=== PATIENT | male | born 1955 | race Caucasian/White ===

== ENCOUNTER 2019-11-22 15:36 | Inpatient (IN) | payer BC, MEDICARE ==
[~2019-11-22] VITALS: Ht 193 cm; Wt 113.0 kg
[2019-11-22] MEDS ORDERED: IV NORMAL SALINE 1000ML BAG 1,000 ML IV ONE (16:00)
[2019-11-22 16:33] LABS: BASO % 1 % (0-3); EOS # 0.1 x10^3/uL (0.0-0.7); EOS % 2 % (0-3); HEMATOCRIT 43.4 % (39.0-53.0); HEMOGLOBIN 14.6 g/dL (13.0-17.5); LYMPH # 1.5 x10^3/uL (1.0-4.8); LYMPH % 27 % (24-48); MEAN CORPUSCULAR HEMOGLOBIN 29 pg (25-35); MEAN CORPUSCULAR HGB CONC 34 g/dL (31-37); MEAN CORPUSCULAR VOLUME 87 fL (79-100); MONO # 0.5 x10^3/uL (0.0-1.1); MONO % 9 % (0-9); NEUT # 3.3 x10^3/uL (1.8-7.7); NEUT % 61 % (31-73); PLATELET COUNT 229 x10^3/uL (140-400); RED BLOOD COUNT 4.97 x10^6/uL (4.30-5.70); RED CELL DISTRIBUTION WIDTH 12.6 % (11.5-14.5); WHITE BLOOD COUNT 5.5 x10^3/uL (4.0-11.0)
--- NOTE | 2019-11-22 16:33 | RAD ---
AP chest. HISTORY: Short of air, fever AP view was taken of the chest. Patient's taken a poor inspiration. There is mild pleural thickening. There is no definite effusion. There are no confluent infiltrates. There are calcified granulomas at the right hilum and mediastinum. IMPRESSION: 1. Poor inspiration. 2. No definite infiltrates. Electronically signed by: Manjinder Kowalski MD (11/22/2019 4:30 PM) [id number]
[2019-11-22 16:42] LABS: ANION GAP 7 (6-14); BLOOD UREA NITROGEN 16 mg/dL (8-26); BUN/CREATININE RATIO 15 (6-20); CALCIUM 9.3 mg/dL (8.5-10.1); CARBON DIOXIDE 31 mmol/L (21-32); CHLORIDE 99 mmol/L (98-107); CREATININE 1.1 mg/dL (0.7-1.3); GFR 67.2; GLUCOSE 148 mg/dL (70-99); POTASSIUM 4.1 mmol/L (3.5-5.1); SODIUM 137 mmol/L (136-145)
[2019-11-22 17:01] LABS: ALBUMIN 3.9 g/dL (3.4-5.0); ALBUMIN/GLOBULIN RATIO 1.2 (1.0-1.7); ALK PHOS 70 U/L (46-116); ALT (SGPT) 36 U/L (16-63); AST (SGOT) 22 U/L (15-37); TOTAL BILIRUBIN 0.4 mg/dL (0.2-1.0); TOTAL PROTEIN 7.1 g/dL (6.4-8.2)
[2019-11-22 17:04] LABS: C-REACTIVE PROTEIN < 0.5 mg/L (0-3.3)
[2019-11-22] MEDS ORDERED: IOHEXOL 350 MG/ML 100 ML VIAL. IV ONE (17:15)
[2019-11-22] MEDS ORDERED: CONTRAST GIVEN. MC PRN (17:15)
[2019-11-22 17:39] LABS: BILIRUBIN,URINE NEGATIVE (NEG); CLARITY,URINE CLEAR; COLOR,URINE YELLOW; NITRITE,URINE NEGATIVE (NEG); PROTEIN,URINE NEGATIVE (NEG-TRACE); UROBILINOGEN,URINE 0.2 mg/dL (0.2 mg/dL)
--- NOTE | 2019-11-22 17:46 | PHYS DOC ---
Past Medical History Past Medical History: High Cholesterol, Hypertension Past Surgical History: Other Additional Past Surgical Histo: LEFT HIP REPLACEMENT Smoking Status: Never Smoker Alcohol Use: Occasionally Adult General Chief Complaint Chief Complaint: FEVER HPI HPI Patient is a 64 year old with symptoms of cough, night sweats, breathlessness, epigastric pain and nausea. Symptoms began approximately 2 weeks ago progressed with shortness of breath over the past 24 hours. Patient has had outpatient work-up including negative COVID, CT head, CT abdomen pelvis testing. Cough is worsened this afternoon with conversation noted on exam. Patient has been treated with 5-day course of antibiotics without improvement. Reports continued postprandial abdominal pain and nausea. Patient PCP contact the ED concern for worsening symptoms and concern for possible malignancy versus worsening infection. Patient denies dizziness lightheadedness upon standing. Patient afebrile with stable vital signs on ED arrival. [] Review of Systems Review of Systems ROS as per HPI. All other systems were reviewed and found to be within normal limits, except as documented in this note. Current Medications Current Medications Current Medications Medications (Trade) Dose Ordered Sig/Geremias Start Time Stop Time Status Last Admin Dose Admin Info (CONTRAST GIVEN -- Rx MONITORING) 1 each PRN DAILY PRN 11/22/19 17:15 11/24/19 17:14 Iohexol (Omnipaque 350 Mg/ml) 100 ml 1X ONCE 11/22/19 17:15 11/22/19 17:16 DC Sodium Chloride 1,000 ml @ 1,000 mls/hr 1X ONCE 11/22/19 16:00 11/22/19 16:59 DC 11/22/19 16:19 1,000 MLS/HR Allergies Allergies Allergies Coded Allergies Type Severity Reaction Last Updated Verified No Known Drug Allergies 11/22/19 No Physical Exam Physical Exam Constitutional: Well developed, well nourished, acutely ill-appearing. [] HENT: Normocephalic, atraumatic, bilateral external ears normal, oropharynx mois t, nose normal. [] Eyes: PERRLA, EOMI, conjunctiva normal, no discharge. [] Neck: Normal range of motion, no stridor. [] Cardiovascular: Tachycardic. R [] Lungs & Thorax: Respirations nonlabored, tachypnea with respiratory rate mid 20s with conversational dyspnea, coarse breath sounds noted. [] Abdomen: Bowel sounds normal, soft, no tenderness, no masses, no pulsatile masses. [] Skin: Warm, dry, no erythema, no rash. [] Back: No tenderness. [] Extremities: No tenderness, no edema. [] Neurologic: Alert and oriented X 3, normal motor function, normal sensory function, no focal deficits noted. [] Psychologic: Affect normal, judgement normal, mood normal. [] Current Patient Data Vital Signs Vital Signs Date Time Temp Pulse Resp B/P (MAP) Pulse Ox O2 Delivery O2 Flow Rate FiO2 11/22/19 16:40 98.3 98.3 11/22/19 15:50 75 18 122/74 (90) 96 Room Air Lab Values Laboratory Tests Test 11/22/19 16:20 White Blood Count 5.5 x10^3/uL (4.0-11.0) Red Blood Count 4.97 x10^6/uL (4.30-5.70) Hemoglobin 14.6 g/dL (13.0-17.5) Hematocrit 43.4 % (39.0-53.0) Mean Corpuscular Volume 87 fL (79-100) Mean Corpuscular Hemoglobin 29 pg (25-35) Mean Corpuscular Hemoglobin Concent 34 g/dL (31-37) Red Cell Distribution Width 12.6 % (11.5-14.5) Platelet Count 229 x10^3/uL (140-400) Neutrophils (%) (Auto) 61 % (31-73) Lymphocytes (%) (Auto) 27 % (24-48) Monocytes (%) (Auto) 9 % (0-9) Eosinophils (%) (Auto) 2 % (0-3) Basophils (%) (Auto) 1 % (0-3) Neutrophils # (Auto) 3.3 x10^3/uL (1.8-7.7) Lymphocytes # (Auto) 1.5 x10^3/uL (1.0-4.8) Monocytes # (Auto) 0.5 x10^3/uL (0.0-1.1) Eosinophils # (Auto) 0.1 x10^3/uL (0.0-0.7) Basophils # (Auto) 0.0 x10^3/uL (0.0-0.2) D-Dimer (Clair) 1.83 ug/mlFEU (0.00-0.50) H Sodium Level 137 mmol/L (136-145) Potassium Level 4.1 mmol/L (3.5-5.1) Chloride Level 99 mmol/L (98-107) Carbon Dioxide Level 31 mmol/L (21-32) Anion Gap 7 (6-14) Blood Urea Nitrogen 16 mg/dL (8-26) Creatinine 1.1 mg/dL (0.7-1.3) Estimated GFR (Cockcroft-Gault) 67.2 BUN/Creatinine Ratio 15 (6-20) Glucose Level 148 mg/dL (70-99) H Lactic Acid Level 1.5 mmol/L (0.4-2.0) Calcium Level 9.3 mg/dL (8.5-10.1) Ferritin 495 ng/mL (26-388) H Total Bilirubin 0.4 mg/dL (0.2-1.0) Aspartate Amino Transferase (AST) 22 U/L (15-37) Alanine Aminotransferase (ALT) 36 U/L (16-63) Alkaline Phosphatase 70 U/L (46-116) C-Reactive Protein, Quantitative < 0.5 mg/L (0-3.3) Total Protein 7.1 g/dL (6.4-8.2) Albumin 3.9 g/dL (3.4-5.0) Albumin/Globulin Ratio 1.2 (1.0-1.7) Laboratory Tests 11/22/19 16:20 Laboratory Tests 11/22/19 16:20 EKG EKG [EKG: Reviewed] Radiology/Procedures Radiology/Procedures [CT angios chest: Pending] Course & Med Decision Making Course & Med Decision Making Pertinent Labs and Imaging studies reviewed. (See chart for details) [Despite normal vital signs and normal white blood cell count, the patient narda ears to be acutely ill. D-dimer and ferritin noted to be elevated. CT angios ordered and pending at this time. Given the patient's progressive symptoms and lack of diagnosis with failed outpatient treatment the patient will be admitted to the to the hospitalist service. CTA chest pending at time of dictation.] Dragon Disclaimer Dragon Disclaimer This electronic medical record was generated, in whole or in part, using a voice recognition dictation system. Departure Departure Impression: Primary Impression: Dyspnea Additional Impression: Abdominal pain Disposition: 09 ADMITTED INPATIENT Referrals: MACEY AGOSTO DO (PCP) Problem Qualifiers ROBBY HELLER DO November 22, 2019 17:46
[2019-11-22 17:47] LABS: BACTERIA,URINE 0 /HPF (0-FEW); RBC,URINE OCC /HPF (0-2); WBC,URINE 0 /HPF (0-4)
[2019-11-22] MEDS ORDERED: ONDANSETRON PF 4 MG/2 ML VIAL. IV PRN (18:00)
--- NOTE | 2019-11-22 18:14 | RAD ---
Exam: CT of chest with contrast INDICATION: Dyspnea TECHNIQUE: Sequential axial images through the chest obtained following the administration 100 mL of Omni 350 IV contrast. Sagittal and coronal reformatted images were reconstructed from the axial data and reviewed. 3-D reformatted images were reconstructed from the axial data and reviewed. Comparisons: Chest x-ray same day FINDINGS: Visualized portions of the thyroid are unremarkable. No enlarged mediastinal lymph nodes are identified. Calcified pretracheal lymph node is seen. Heart size is normal. No pericardial effusion. Thoracic aorta has a normal course and caliber. Pulmonary artery is not enlarged. No pulmonary embolus identified within the main, lobar or segmental pulmonary arteries. Airways are patent. No consolidation or pneumothorax. No suspicious lung nodules. No pleural effusion or thickening. No pleural effusion or thickening. No suspicious osseous lesions or acute fractures. IMPRESSION: No pulmonary embolus identified within the main, lobar or segmental pulmonary arteries. Exposure: One or more of the following in the visualized dose reduction techniques were utilized for this examination: 1. Automated exposure control 2. Adjustment of the MA and/or KV according to patient size 3. Use of iterative of reconstructive technique Electronically signed by: Mariann Mcelroy MD (11/22/2019 6:12 PM) [id number]
[2019-11-22 20:35] VITALS: BP 143/90
--- NOTE | 2019-11-22 20:35 | NUR ---
The patient, ZO ALDANA, 64 y/o, M admitted by OPAL STEELE MD, was given written information regarding hospital policies, unit procedures and contact persons. Valuables were checked and left with him, daughter is to call tomorrow morning per Patient with medication list.
[2019-11-22] MEDS ORDERED: guaiFENesin/CODEINE 100mg/10mg 5 ML LIQUID PO PRN (20:45)
[2019-11-22] MEDS ORDERED: BENZONATATE 100 MG CAPSULE. PO PRN (20:45)
--- NOTE | 2019-11-22 20:48 | PDOC1 ---
History and Physical Date of Admission Date of Admission DATE: 11/22/19 TIME: 20:42 Identification/Chief Complaint Chief Complaint weakenss, cough Source Source: Chart review, Patient History of Present Illness History of Present Illness Mr. Gonzalez, is a 64 year old with symptoms of cough, night sweats, breathlessness, epigastric pain and nausea. Symptoms began 2 weeks ago and are much worse today, new abd pain and now leg weakness that he can hardly walk up stairs and he usually walks vigorously for one hour a day. . Patient has had outpatient work-up including negative COVID, CT head, CT abdomen pelvis testing. Cough is worsened this afternoon with conversation noted on exam Patient PCP contact the ED concern for worsening symptoms and fever and nausea. . Patient afebrile with stable vital signs on ED arrival. 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 [employer], Past Medical History Cardiovascular: No pertinent hx Rheumatologic: No pertinent hx Infectious disease: No pertinent hx Renal/: No pertinent hx Social History Smoke: No ALCOHOL: none Drugs: None Current Problem List Problem List Problems Medical Problems: (1) Abdominal pain Status: Acute (2) Dyspnea Status: Acute Current Medications Current Medications Current Medications Sodium Chloride 1,000 ml @ 1,000 mls/hr 1X ONCE IV Last administered on 11/22/19at 16:19; Start 11/22/19 at 16:00; Stop 11/22/19 at 16:59; Status DC Iohexol (Omnipaque 350 Mg/ml) 100 ml 1X ONCE IV Last administered on 11/22/19at 17:15; Start 11/22/19 at 17:15; Stop 11/22/19 at 17:16; Status DC Info (CONTRAST GIVEN -- Rx MONITORING) 1 each PRN DAILY PRN MC SEE COMMENTS; Start 11/22/19 at 17:15; Stop 11/24/19 at 17:14 Ondansetron HCl (Zofran) 4 mg PRN Q8HRS PRN IV NAUSEA/VOMITING; Start 11/22/19 at 18:00; Stop 11/23/19 at 17:59 Morphine Sulfate (Morphine Sulfate) 2 mg PRN Q2HR PRN IV PAIN; Start 11/22/19 at 18:00; Stop 11/23/19 at 17:59 Allergies Allergies: Coded Allergies: No Known Drug Allergies (Unverified , 11/22/19) ROS General: YES: Chills, Fatigue, Malaise, Appetite (poor) PSYCHOLOGICAL ROS: YES: Sleep disturbances; No: Anxiety, Behavioral Disorder, Concentration difficultie, Decreased libido, Depression, Disorientation, Hallucinations, Hostility, Irritablity, Memory difficulties, Mood Swings, Obsessive thoughts, Suicidal ideation, Other Eyes: No Blurry vision, No Decreased vision, No Double vision, No Dry eyes, No Excessive tearing, No Eye Pain, No Itchy Eyes, No Loss of vision, No Photophobia, No Scotomata, No Uses contacts, No Uses glasses, No Other HEENT: No: Heacaches, Visual Changes, Hearing change, Nasal congestion, Nasal discharge, Oral lesions, Sinus pain, Sore Throat, Epistaxis, Sneezing, Snoring, Tinnitus, Vertigo, Vocal changes, Other Respiratory: YES: Cough; No: Hemoptysis, Orthopnea, Pleuritic Pain, Shortness of breath, SOB with excertion, Sputum Changes, Stridor, Tachypnea, Wheezing, Other Cardiovascular: No Chest Pain, No Palpitations, No Orthopnea, No Paroxysmal Noc. Dyspnea, No Edema, No Lt Headedness, No Other Gastrointestinal: Yes Nausea, Yes Abdominal Pain; No Vomiting, No Diarrhea, No Constipation, No Melena, No Hematochezia, No Other Genitourinary: No Dysuria, No Frequency, No Incontinence, No Hematuria, No Retention, No Discharge, No Urgency, No Pain, No Flank Pain, No Other, No , No , No , No , No , No , No Musculoskeletal: Yes Muscular Weakness, Yes Pain In:; No Gait Disturbance, No Joint Pain, No Joint Stiffness, No Joint Swelling, No Muscle Pain, No Swelling In:, No Other Neurological: Yes Gait Disturbance (limited by distance severely); No Behavorial Changes, No Bowel/Bladder ControlChng, No Confusion, No Dizziness, No Headaches, No Impaired Coord/balance, No Memory Loss, No Numbness/Tingling, No Seizures, No Speech Problems, No Tremors, No Visual Changes, No Weakness, No Other Skin: No Dry Skin, No Eczema, No Hair Changes, No Lumps, No Mole Changes, No Mottling, No Nail Changes, No Pruritus, No Rash, No Skin Lesion Changes, No O ther, No Acne Physical Exam General: Alert, Oriented X3, Cooperative, No acute distress, Other (very weak) HEENT: Atraumatic, PERRLA Lungs: Clear to auscultation Heart: S1S2, RRR, no thrills Abdomen: Normal bowel sounds, Soft Extremities: No clubbing, No cyanosis, Normal pulses Skin: No rashes, No breakdown, No significant lesion Neuro: Normal speech, Normal tone Psych/Mental Status: Mood NL Vitals Vitals Vital Signs Date Time Temp Pulse Resp B/P (MAP) Pulse Ox O2 Delivery O2 Flow Rate FiO2 11/22/19 18:15 77 133/73 (93) 97 Room Air 11/22/19 16:40 98.3 98.3 11/22/19 15:50 18 Labs Labs Laboratory Tests Test 11/22/19 16:20 11/22/19 17:25 White Blood Count 5.5 x10^3/uL (4.0-11.0) Red Blood Count 4.97 x10^6/uL (4.30-5.70) Hemoglobin 14.6 g/dL (13.0-17.5) Hematocrit 43.4 % (39.0-53.0) Mean Corpuscular Volume 87 fL (79-100) Mean Corpuscular Hemoglobin 29 pg (25-35) Mean Corpuscular Hemoglobin Concent 34 g/dL (31-37) Red Cell Distribution Width 12.6 % (11.5-14.5) Platelet Count 229 x10^3/uL (140-400) Neutrophils (%) (Auto) 61 % (31-73) Lymphocytes (%) (Auto) 27 % (24-48) Monocytes (%) (Auto) 9 % (0-9) Eosinophils (%) (Auto) 2 % (0-3) Basophils (%) (Auto) 1 % (0-3) Neutrophils # (Auto) 3.3 x10^3/uL (1.8-7.7) Lymphocytes # (Auto) 1.5 x10^3/uL (1.0-4.8) Monocytes # (Auto) 0.5 x10^3/uL (0.0-1.1) Eosinophils # (Auto) 0.1 x10^3/uL (0.0-0.7) Basophils # (Auto) 0.0 x10^3/uL (0.0-0.2) D-Dimer (Clair) 1.83 ug/mlFEU (0.00-0.50) Sodium Level 137 mmol/L (136-145) Potassium Level 4.1 mmol/L (3.5-5.1) Chloride Level 99 mmol/L (98-107) Carbon Dioxide Level 31 mmol/L (21-32) Anion Gap 7 (6-14) Blood Urea Nitrogen 16 mg/dL (8-26) Creatinine 1.1 mg/dL (0.7-1.3) Estimated GFR (Cockcroft-Gault) 67.2 BUN/Creatinine Ratio 15 (6-20) Glucose Level 148 mg/dL (70-99) Lactic Acid Level 1.5 mmol/L (0.4-2.0) Calcium Level 9.3 mg/dL (8.5-10.1) Ferritin 495 ng/mL (26-388) Total Bilirubin 0.4 mg/dL (0.2-1.0) Aspartate Amino Transf (AST/SGOT) 22 U/L (15-37) Alanine Aminotransferase (ALT/SGPT) 36 U/L (16-63) Alkaline Phosphatase 70 U/L (46-116) Troponin I Quantitative < 0.017 ng/mL (0.000-0.055) C-Reactive Protein, Quantitative < 0.5 mg/L (0-3.3) DV-Kth-Y-Type Natriuretic Peptide 24 pg/mL (0-124) Total Protein 7.1 g/dL (6.4-8.2) Albumin 3.9 g/dL (3.4-5.0) Albumin/Globulin Ratio 1.2 (1.0-1.7) Urine Collection Type Unknown Urine Color Yellow Urine Clarity Clear Urine pH 7.0 (<5.0-8.0) Urine Specific Downey 1.010 (1.000-1.030) Urine Protein Negative mg/dL (NEG-TRACE) Urine Glucose (UA) Negative mg/dL (NEG) Urine Ketones (Stick) Negative mg/dL (NEG) Urine Blood Negative (NEG) Urine Nitrite Negative (NEG) Urine Bilirubin Negative (NEG) Urine Urobilinogen Dipstick 0.2 mg/dL (0.2 mg/dL) Urine Leukocyte Esterase Negative (NEG) Urine RBC Occ /HPF (0-2) Urine WBC 0 /HPF (0-4) Urine Bacteria 0 /HPF (0-FEW) Laboratory Tests Test 11/22/19 16:20 11/22/19 17:25 White Blood Count 5.5 x10^3/uL (4.0-11.0) Red Blood Count 4.97 x10^6/uL (4.30-5.70) Hemoglobin 14.6 g/dL (13.0-17.5) Hematocrit 43.4 % (39.0-53.0) Mean Corpuscular Volume 87 fL (79-100) Mean Corpuscular Hemoglobin 29 pg (25-35) Mean Corpuscular Hemoglobin Concent 34 g/dL (31-37) Red Cell Distribution Width 12.6 % (11.5-14.5) Platelet Count 229 x10^3/uL (140-400) Neutrophils (%) (Auto) 61 % (31-73) Lymphocytes (%) (Auto) 27 % (24-48) Monocytes (%) (Auto) 9 % (0-9) Eosinophils (%) (Auto) 2 % (0-3) Basophils (%) (Auto) 1 % (0-3) Neutrophils # (Auto) 3.3 x10^3/uL (1.8-7.7) Lymphocytes # (Auto) 1.5 x10^3/uL (1.0-4.8) Monocytes # (Auto) 0.5 x10^3/uL (0.0-1.1) Eosinophils # (Auto) 0.1 x10^3/uL (0.0-0.7) Basophils # (Auto) 0.0 x10^3/uL (0.0-0.2) D-Dimer (Clair) 1.83 ug/mlFEU (0.00-0.50) Sodium Level 137 mmol/L (136-145) Potassium Level 4.1 mmol/L (3.5-5.1) Chloride Level 99 mmol/L (98-107) Carbon Dioxide Level 31 mmol/L (21-32) Anion Gap 7 (6-14) Blood Urea Nitrogen 16 mg/dL (8-26) Creatinine 1.1 mg/dL (0.7-1.3) Estimated GFR (Cockcroft-Gault) 67.2 BUN/Creatinine Ratio 15 (6-20) Glucose Level 148 mg/dL (70-99) Lactic Acid Level 1.5 mmol/L (0.4-2.0) Calcium Level 9.3 mg/dL (8.5-10.1) Ferritin 495 ng/mL (26-388) Total Bilirubin 0.4 mg/dL (0.2-1.0) Aspartate Amino Transf (AST/SGOT) 22 U/L (15-37) Alanine Aminotransferase (ALT/SGPT) 36 U/L (16-63) Alkaline Phosphatase 70 U/L (46-116) Troponin I Quantitative < 0.017 ng/mL (0.000-0.055) C-Reactive Protein, Quantitative < 0.5 mg/L (0-3.3) SN-Slo-K-Type Natriuretic Peptide 24 pg/mL (0-124) Total Protein 7.1 g/dL (6.4-8.2) Albumin 3.9 g/dL (3.4-5.0) Albumin/Globulin Ratio 1.2 (1.0-1.7) Urine Collection Type Unknown Urine Color Yellow Urine Clarity Clear Urine pH 7.0 (<5.0-8.0) Urine Specific Downey 1.010 (1.000-1.030) Urine Protein Negative mg/dL (NEG-TRACE) Urine Glucose (UA) Negative mg/dL (NEG) Urine Ketones (Stick) Negative mg/dL (NEG) Urine Blood Negative (NEG) Urine Nitrite Negative (NEG) Urine Bilirubin Negative (NEG) Urine Urobilinogen Dipstick 0.2 mg/dL (0.2 mg/dL) Urine Leukocyte Esterase Negative (NEG) Urine RBC Occ /HPF (0-2) Urine WBC 0 /HPF (0-4) Urine Bacteria 0 /HPF (0-FEW) VTE Prophylaxis Ordered VTE Prophylaxis Devices: No VTE Pharmacological Prophylaxi: Yes Assessment/Plan Assessment/Plan fever, sepsis cough, leg weakness, abd pain, presume COVID -19 infection admit OPAL STEELE MD November 22, 2019 20:48
[2019-11-22] MEDS: ENOXAPARIN 40 MG/0.4 ML SYRINGE. SQ SCH (22:11)
[2019-11-22 23:00] VITALS: BP_SYST 137; BP_SYST 139; BP_SYST 143; BP_DIAS 84; BP_DIAS 89; BP_DIAS 90
[2019-11-23] MEDS: oxyCODONE/APAP 5/325 1 TAB TABLET PO PRN ×3 (00:45→20:18)
[2019-11-23 03:00] VITALS: BP 127/88
[2019-11-23 05:28] LABS: BASO % 0 % (0-3); EOS # 0.1 x10^3/uL (0.0-0.7); EOS % 1 % (0-3); HEMATOCRIT 40.9 % (39.0-53.0); HEMOGLOBIN 13.7 g/dL (13.0-17.5); LYMPH # 1.6 x10^3/uL (1.0-4.8); LYMPH % 24 % (24-48); MEAN CORPUSCULAR HEMOGLOBIN 29 pg (25-35); MEAN CORPUSCULAR HGB CONC 33 g/dL (31-37); MEAN CORPUSCULAR VOLUME 88 fL (79-100); MONO # 0.5 x10^3/uL (0.0-1.1); MONO % 8 % (0-9); NEUT # 4.5 x10^3/uL (1.8-7.7); NEUT % 67 % (31-73); PLATELET COUNT 217 x10^3/uL (140-400); RED BLOOD COUNT 4.65 x10^6/uL (4.30-5.70); RED CELL DISTRIBUTION WIDTH 12.5 % (11.5-14.5); WHITE BLOOD COUNT 6.7 x10^3/uL (4.0-11.0)
[2019-11-23 05:46] LABS: ALBUMIN 3.6 g/dL (3.4-5.0); ALBUMIN/GLOBULIN RATIO 1.2 (1.0-1.7); CALCIUM 8.7 mg/dL (8.5-10.1); CREATININE 1.1 mg/dL (0.7-1.3); GFR 67.2; POTASSIUM 4.1 mmol/L (3.5-5.1); TOTAL BILIRUBIN 0.5 mg/dL (0.2-1.0); TOTAL PROTEIN 6.6 g/dL (6.4-8.2)
[2019-11-23 07:00] VITALS: BP 119/79
[2019-11-23] MEDS: MORPHINE SULFATE 2 MG/ML VIAL. IV PRN ×2 (09:28→17:54)
[2019-11-23] MEDS ORDERED: LISI1TAB23 PO (09:38)
[2019-11-23] MEDS ORDERED: ATOR20TA58 PO (09:38)
[2019-11-23 11:00] VITALS: BP 143/88
--- NOTE | 2019-11-23 13:41 | NUR ---
SS following for discharge planning. SS reviewed pt chart and discussed with pt RN. Pt is from home with spouse and is currently on room air. Pt is COVID19 test pending. SS will continue to follow for discharge planning.
[2019-11-23 15:00] VITALS: BP 142/88
--- NOTE | 2019-11-23 15:47 | PDOC ---
PROGRESS NOTES Chief Complaint Chief Complaint Acute febrile illness Presumed sepsis which pretty much is ruled out given his normal lactic acid cough, Difficulty ambulating secondary to leg weakness, abd pain without clear etiology and no dietary transgression, symptoms have improved presume COVID -19 infection. Currently awaiting for results Plan: Pain management Await COVID result Discharge once results are available Reassurance provided Discussed normal results at length with patient History of Present Illness History of Present Illness No acute events reported overnight, case discussed with nursing staff patient in no acute distress no complaints during my visit Vitals Vitals Vital Signs Date Time Temp Pulse Resp B/P (MAP) Pulse Ox O2 Delivery O2 Flow Rate FiO2 11/23/19 15:04 Room Air 11/23/19 11:00 98.3 67 17 143/88 (106) 97 98.3 Physical Exam General: Alert, Oriented X3, Cooperative, No acute distress, Other (very weak) Abdomen: Normal bowel sounds, Soft Extremities: No clubbing, No cyanosis, Normal pulses Skin: No rashes, No breakdown, No significant lesion Labs LABS Laboratory Tests Test 11/22/19 16:20 11/22/19 17:25 11/22/19 20:45 11/23/19 04:45 White Blood Count 5.5 x10^3/uL (4.0-11.0) 6.7 x10^3/uL (4.0-11.0) Red Blood Count 4.97 x10^6/uL (4.30-5.70) 4.65 x10^6/uL (4.30-5.70) Hemoglobin 14.6 g/dL (13.0-17.5) 13.7 g/dL (13.0-17.5) Hematocrit 43.4 % (39.0-53.0) 40.9 % (39.0-53.0) Mean Corpuscular Volume 87 fL (79-100) 88 fL (79-100) Mean Corpuscular Hemoglobin 29 pg (25-35) 29 pg (25-35) Mean Corpuscular Hemoglobin Concent 34 g/dL (31-37) 33 g/dL (31-37) Red Cell Distribution Width 12.6 % (11.5-14.5) 12.5 % (11.5-14.5) Platelet Count 229 x10^3/uL (140-400) 217 x10^3/uL (140-400) Neutrophils (%) (Auto) 61 % (31-73) 67 % (31-73) Lymphocytes (%) (Auto) 27 % (24-48) 24 % (24-48) Monocytes (%) (Auto) 9 % (0-9) 8 % (0-9) Eosinophils (%) (Auto) 2 % (0-3) 1 % (0-3) Basophils (%) (Auto) 1 % (0-3) 0 % (0-3) Neutrophils # (Auto) 3.3 x10^3/uL (1.8-7.7) 4.5 x10^3/uL (1.8-7.7) Lymphocytes # (Auto) 1.5 x10^3/uL (1.0-4.8) 1.6 x10^3/uL (1.0-4.8) Monocytes # (Auto) 0.5 x10^3/uL (0.0-1.1) 0.5 x10^3/uL (0.0-1.1) Eosinophils # (Auto) 0.1 x10^3/uL (0.0-0.7) 0.1 x10^3/uL (0.0-0.7) Basophils # (Auto) 0.0 x10^3/uL (0.0-0.2) 0.0 x10^3/uL (0.0-0.2) D-Dimer (Clair) 1.83 ug/mlFEU (0.00-0.50) Sodium Level 137 mmol/L (136-145) 138 mmol/L (136-145) Potassium Level 4.1 mmol/L (3.5-5.1) 4.1 mmol/L (3.5-5.1) Chloride Level 99 mmol/L (98-107) 100 mmol/L (98-107) Carbon Dioxide Level 31 mmol/L (21-32) 31 mmol/L (21-32) Anion Gap 7 (6-14) 7 (6-14) Blood Urea Nitrogen 16 mg/dL (8-26) 13 mg/dL (8-26) Creatinine 1.1 mg/dL (0.7-1.3) 1.1 mg/dL (0.7-1.3) Estimated GFR (Cockcroft-Gault) 67.2 67.2 BUN/Creatinine Ratio 15 (6-20) 12 (6-20) Glucose Level 148 mg/dL (70-99) 135 mg/dL (70-99) Lactic Acid Level 1.5 mmol/L (0.4-2.0) Calcium Level 9.3 mg/dL (8.5-10.1) 8.7 mg/dL (8.5-10.1) Ferritin 495 ng/mL (26-388) Total Bilirubin 0.4 mg/dL (0.2-1.0) 0.5 mg/dL (0.2-1.0) Aspartate Amino Transf (AST/SGOT) 22 U/L (15-37) 19 U/L (15-37) Alanine Aminotransferase (ALT/SGPT) 36 U/L (16-63) 36 U/L (16-63) Alkaline Phosphatase 70 U/L (46-116) 63 U/L (46-116) Troponin I Quantitative < 0.017 ng/mL (0.000-0.055) < 0.017 ng/mL (0.000-0.055) C-Reactive Protein, Quantitative < 0.5 mg/L (0-3.3) PA-Gtr-N-Type Natriuretic Peptide 24 pg/mL (0-124) Total Protein 7.1 g/dL (6.4-8.2) 6.6 g/dL (6.4-8.2) Albumin 3.9 g/dL (3.4-5.0) 3.6 g/dL (3.4-5.0) Albumin/Globulin Ratio 1.2 (1.0-1.7) 1.2 (1.0-1.7) Urine Collection Type Unknown Urine Color Yellow Urine Clarity Clear Urine pH 7.0 (<5.0-8.0) Urine Specific Marion 1.010 (1.000-1.030) Urine Protein Negative mg/dL (NEG-TRACE) Urine Glucose (UA) Negative mg/dL (NEG) Urine Ketones (Stick) Negative mg/dL (NEG) Urine Blood Negative (NEG) Urine Nitrite Negative (NEG) Urine Bilirubin Negative (NEG) Urine Urobilinogen Dipstick 0.2 mg/dL (0.2 mg/dL) Urine Leukocyte Esterase Negative (NEG) Urine RBC Occ /HPF (0-2) Urine WBC 0 /HPF (0-4) Urine Bacteria 0 /HPF (0-FEW) Assessment and Plan Assessmemt and Plan Problems Medical Problems: (1) Abdominal pain Status: Acute (2) Dyspnea Status: Acute Comment Review of Relevant I have reviewed the following items mart (where applicable) has been applied. Labs Laboratory Tests Test 11/22/19 16:20 11/22/19 17:25 11/22/19 20:45 11/23/19 04:45 White Blood Count 5.5 x10^3/uL (4.0-11.0) 6.7 x10^3/uL (4.0-11.0) Red Blood Count 4.97 x10^6/uL (4.30-5.70) 4.65 x10^6/uL (4.30-5.70) Hemoglobin 14.6 g/dL (13.0-17.5) 13.7 g/dL (13.0-17.5) Hematocrit 43.4 % (39.0-53.0) 40.9 % (39.0-53.0) Mean Corpuscular Volume 87 fL (79-100) 88 fL (79-100) Mean Corpuscular Hemoglobin 29 pg (25-35) 29 pg (25-35) Mean Corpuscular Hemoglobin Concent 34 g/dL (31-37) 33 g/dL (31-37) Red Cell Distribution Width 12.6 % (11.5-14.5) 12.5 % (11.5-14.5) Platelet Count 229 x10^3/uL (140-400) 217 x10^3/uL (140-400) Neutrophils (%) (Auto) 61 % (31-73) 67 % (31-73) Lymphocytes (%) (Auto) 27 % (24-48) 24 % (24-48) Monocytes (%) (Auto) 9 % (0-9) 8 % (0-9) Eosinophils (%) (Auto) 2 % (0-3) 1 % (0-3) Basophils (%) (Auto) 1 % (0-3) 0 % (0-3) Neutrophils # (Auto) 3.3 x10^3/uL (1.8-7.7) 4.5 x10^3/uL (1.8-7.7) Lymphocytes # (Auto) 1.5 x10^3/uL (1.0-4.8) 1.6 x10^3/uL (1.0-4.8) Monocytes # (Auto) 0.5 x10^3/uL (0.0-1.1) 0.5 x10^3/uL (0.0-1.1) Eosinophils # (Auto) 0.1 x10^3/uL (0.0-0.7) 0.1 x10^3/uL (0.0-0.7) Basophils # (Auto) 0.0 x10^3/uL (0.0-0.2) 0.0 x10^3/uL (0.0-0.2) D-Dimer (Clair) 1.83 ug/mlFEU (0.00-0.50) Sodium Level 137 mmol/L (136-145) 138 mmol/L (136-145) Potassium Level 4.1 mmol/L (3.5-5.1) 4.1 mmol/L (3.5-5.1) Chloride Level 99 mmol/L (98-107) 100 mmol/L (98-107) Carbon Dioxide Level 31 mmol/L (21-32) 31 mmol/L (21-32) Anion Gap 7 (6-14) 7 (6-14) Blood Urea Nitrogen 16 mg/dL (8-26) 13 mg/dL (8-26) Creatinine 1.1 mg/dL (0.7-1.3) 1.1 mg/dL (0.7-1.3) Estimated GFR (Cockcroft-Gault) 67.2 67.2 BUN/Creatinine Ratio 15 (6-20) 12 (6-20) Glucose Level 148 mg/dL (70-99) 135 mg/dL (70-99) Lactic Acid Level 1.5 mmol/L (0.4-2.0) Calcium Level 9.3 mg/dL (8.5-10.1) 8.7 mg/dL (8.5-10.1) Ferritin 495 ng/mL (26-388) Total Bilirubin 0.4 mg/dL (0.2-1.0) 0.5 mg/dL (0.2-1.0) Aspartate Amino Transf (AST/SGOT) 22 U/L (15-37) 19 U/L (15-37) Alanine Aminotransferase (ALT/SGPT) 36 U/L (16-63) 36 U/L (16-63) Alkaline Phosphatase 70 U/L (46-116) 63 U/L (46-116) Troponin I Quantitative < 0.017 ng/mL (0.000-0.055) < 0.017 ng/mL (0.000-0.055) C-Reactive Protein, Quantitative < 0.5 mg/L (0-3.3) MW-Ivq-S-Type Natriuretic Peptide 24 pg/mL (0-124) Total Protein 7.1 g/dL (6.4-8.2) 6.6 g/dL (6.4-8.2) Albumin 3.9 g/dL (3.4-5.0) 3.6 g/dL (3.4-5.0) Albumin/Globulin Ratio 1.2 (1.0-1.7) 1.2 (1.0-1.7) Urine Collection Type Unknown Urine Color Yellow Urine Clarity Clear Urine pH 7.0 (<5.0-8.0) Urine Specific Marion 1.010 (1.000-1.030) Urine Protein Negative mg/dL (NEG-TRACE) Urine Glucose (UA) Negative mg/dL (NEG) Urine Ketones (Stick) Negative mg/dL (NEG) Urine Blood Negative (NEG) Urine Nitrite Negative (NEG) Urine Bilirubin Negative (NEG) Urine Urobilinogen Dipstick 0.2 mg/dL (0.2 mg/dL) Urine Leukocyte Esterase Negative (NEG) Urine RBC Occ /HPF (0-2) Urine WBC 0 /HPF (0-4) Urine Bacteria 0 /HPF (0-FEW) Laboratory Tests Test 11/22/19 16:20 11/22/19 17:25 11/22/19 20:45 11/23/19 04:45 White Blood Count 5.5 x10^3/uL (4.0-11.0) 6.7 x10^3/uL (4.0-11.0) Red Blood Count 4.97 x10^6/uL (4.30-5.70) 4.65 x10^6/uL (4.30-5.70) Hemoglobin 14.6 g/dL (13.0-17.5) 13.7 g/dL (13.0-17.5) Hematocrit 43.4 % (39.0-53.0) 40.9 % (39.0-53.0) Mean Corpuscular Volume 87 fL (79-100) 88 fL (79-100) Mean Corpuscular Hemoglobin 29 pg (25-35) 29 pg (25-35) Mean Corpuscular Hemoglobin Concent 34 g/dL (31-37) 33 g/dL (31-37) Red Cell Distribution Width 12.6 % (11.5-14.5) 12.5 % (11.5-14.5) Platelet Count 229 x10^3/uL (140-400) 217 x10^3/uL (140-400) Neutrophils (%) (Auto) 61 % (31-73) 67 % (31-73) Lymphocytes (%) (Auto) 27 % (24-48) 24 % (24-48) Monocytes (%) (Auto) 9 % (0-9) 8 % (0-9) Eosinophils (%) (Auto) 2 % (0-3) 1 % (0-3) Basophils (%) (Auto) 1 % (0-3) 0 % (0-3) Neutrophils # (Auto) 3.3 x10^3/uL (1.8-7.7) 4.5 x10^3/uL (1.8-7.7) Lymphocytes # (Auto) 1.5 x10^3/uL (1.0-4.8) 1.6 x10^3/uL (1.0-4.8) Monocytes # (Auto) 0.5 x10^3/uL (0.0-1.1) 0.5 x10^3/uL (0.0-1.1) Eosinophils # (Auto) 0.1 x10^3/uL (0.0-0.7) 0.1 x10^3/uL (0.0-0.7) Basophils # (Auto) 0.0 x10^3/uL (0.0-0.2) 0.0 x10^3/uL (0.0-0.2) D-Dimer (Clair) 1.83 ug/mlFEU (0.00-0.50) Sodium Level 137 mmol/L (136-145) 138 mmol/L (136-145) Potassium Level 4.1 mmol/L (3.5-5.1) 4.1 mmol/L (3.5-5.1) Chloride Level 99 mmol/L (98-107) 100 mmol/L (98-107) Carbon Dioxide Level 31 mmol/L (21-32) 31 mmol/L (21-32) Anion Gap 7 (6-14) 7 (6-14) Blood Urea Nitrogen 16 mg/dL (8-26) 13 mg/dL (8-26) Creatinine 1.1 mg/dL (0.7-1.3) 1.1 mg/dL (0.7-1.3) Estimated GFR (Cockcroft-Gault) 67.2 67.2 BUN/Creatinine Ratio 15 (6-20) 12 (6-20) Glucose Level 148 mg/dL (70-99) 135 mg/dL (70-99) Lactic Acid Level 1.5 mmol/L (0.4-2.0) Calcium Level 9.3 mg/dL (8.5-10.1) 8.7 mg/dL (8.5-10.1) Ferritin 495 ng/mL (26-388) Total Bilirubin 0.4 mg/dL (0.2-1.0) 0.5 mg/dL (0.2-1.0) Aspartate Amino Transf (AST/SGOT) 22 U/L (15-37) 19 U/L (15-37) Alanine Aminotransferase (ALT/SGPT) 36 U/L (16-63) 36 U/L (16-63) Alkaline Phosphatase 70 U/L (46-116) 63 U/L (46-116) Troponin I Quantitative < 0.017 ng/mL (0.000-0.055) < 0.017 ng/mL (0.000-0.055) C-Reactive Protein, Quantitative < 0.5 mg/L (0-3.3) JQ-Tow-V-Type Natriuretic Peptide 24 pg/mL (0-124) Total Protein 7.1 g/dL (6.4-8.2) 6.6 g/dL (6.4-8.2) Albumin 3.9 g/dL (3.4-5.0) 3.6 g/dL (3.4-5.0) Albumin/Globulin Ratio 1.2 (1.0-1.7) 1.2 (1.0-1.7) Urine Collection Type Unknown Urine Color Yellow Urine Clarity Clear Urine pH 7.0 (<5.0-8.0) Urine Specific [place] 1.010 (1.000-1.030) Urine Protein Negative mg/dL (NEG-TRACE) Urine Glucose (UA) Negative mg/dL (NEG) Urine Ketones (Stick) Negative mg/dL (NEG) Urine Blood Negative (NEG) Urine Nitrite Negative (NEG) Urine Bilirubin Negative (NEG) Urine Urobilinogen Dipstick 0.2 mg/dL (0.2 mg/dL) Urine Leukocyte Esterase Negative (NEG) Urine RBC Occ /HPF (0-2) Urine WBC 0 /HPF (0-4) Urine Bacteria 0 /HPF (0-FEW) Medications Current Medications Sodium Chloride 1,000 ml @ 1,000 mls/hr 1X ONCE IV Last administered on 11/22/19at 16:19; Start 11/22/19 at 16:00; Stop 11/22/19 at 16:59; Status DC Iohexol (Omnipaque 350 Mg/ml) 100 ml 1X ONCE IV Last administered on 11/22/19at 17:15; Start 11/22/19 at 17:15; Stop 11/22/19 at 17:16; Status DC Info (CONTRAST GIVEN -- Rx MONITORING) 1 each PRN DAILY PRN MC SEE COMMENTS; Start 11/22/19 at 17:15; Stop 11/24/19 at 17:14 Ondansetron HCl (Zofran) 4 mg PRN Q8HRS PRN IV NAUSEA/VOMITING Last ad ministered on 11/23/19at 09:27; Start 11/22/19 at 18:00; Stop 11/23/19 at 17:59 Morphine Sulfate (Morphine Sulfate) 2 mg PRN Q2HR PRN IV PAIN Last administered on 11/23/19at 09:28; Start 11/22/19 at 18:00; Stop 11/23/19 at 17:59 Oxycodone/ Acetaminophen (Percocet 5/325) 1 tab PRN Q4HRS PRN PO PAIN Last administered on 11/23/19at 15:04; Start 11/22/19 at 20:45 Guaifenesin/ Codeine Phosphate (Robitussin Ac) 5 ml PRN Q6HRS PRN PO COUGH; Start 11/22/19 at 20:45 Benzonatate (Tessalon Perle) 100 mg PRN TID PRN PO cough; Start 11/22/19 at 20:45 Enoxaparin Sodium (Lovenox Per Pharmacy Prophylaxis Dosing) 1 each PRN DAILY PRN MC SEE COMMENTS; Start 11/22/19 at 20:45 Enoxaparin Sodium (Lovenox 40mg Syringe) 40 mg Q24H SQ Last administered on 11/22/19at 22:11; Start 11/22/19 at 21:00 Active Scripts Active Reported Atorvastatin Calcium 20 Mg Tablet 1 Tab PO HS 30 Days Lisinopril-Hctz 10-12.5 Mg Tab (Lisinopril/Hydrochlorothiazide) 1 Each Tablet 1 Tab PO DAILY Vitals/I & O Vital Sign - Last 24 Hours 11/22/19 11/22/19 11/22/19 11/22/19 15:50 15:56 16:26 16:40 Temp 98.6 98.3 98.6 98.3 Pulse 75 68 64 Resp 18 B/P (MAP) 122/74 (90) 122/74 (90) 124/81 (95) Pulse Ox 96 98 98 O2 Delivery Room Air Room Air Room Air 11/22/19 11/22/19 11/22/19 11/22/19 16:56 17:26 18:15 19:12 Pulse 70 72 77 71 Resp 18 B/P (MAP) 136/86 (103) 168/97 (120) 133/73 (93) 128/87 (101) Pulse Ox 98 97 97 96 O2 Delivery Room Air Room Air Room Air Room Air 11/22/19 11/22/19 11/22/19 11/22/19 19:42 20:12 20:35 20:35 Temp 98.0 98.0 Pulse 71 67 97 Resp 18 B/P (MAP) 127/80 (96) 111/74 (86) 143/90 (107) Pulse Ox 96 97 97 O2 Delivery Room Air Room Air Room Air Room Air 11/22/19 11/23/19 11/23/19 11/23/19 23:00 00:45 01:45 03:00 Temp 98.0 96.9 98.0 96.9 Pulse 60 98 Resp 18 18 18 18 B/P (MAP) 139/89 (106) 127/88 (101) Pulse Ox 97 97 97 95 O2 Delivery Room Air Room Air Room Air Room Air 11/23/19 11/23/19 11/23/19 11/23/19 07:00 08:20 09:28 11:00 Temp 97.3 98.3 97.3 98.3 Pulse 64 67 Resp 16 17 B/P (MAP) 119/79 (92) 143/88 (106) Pulse Ox 98 98 97 O2 Delivery Room Air Room Air Room Air Room Air 11/23/19 15:04 O2 Delivery Room Air Intake and Output 11/22/19 11/22/19 11/23/19 15:00 23:00 07:00 Intake Total 1000 ml 360 ml Output Total 700 ml Balance 1000 ml -340 ml LANDRY PEREZ MD November 23, 2019 15:47
[2019-11-23] MEDS: LISINOPRIL 10 MG TABLET PO SCH (17:32)
[2019-11-23] MEDS: hydroCHLOROthiazide 12.5 MG CAPSULE PO SCH (17:32)
[2019-11-23 19:00] VITALS: BP 144/90
[2019-11-23] MEDS ORDERED: ZOLPIDEM 5 MG TABLET. PO PRN (20:00)
[2019-11-23] MEDS: ENOXAPARIN 40 MG/0.4 ML SYRINGE. SQ SCH (20:18)
[2019-11-23] MEDS ORDERED: ATORVASTATIN CALCIUM 20 MG TABLET PO SCH (21:00)
[2019-11-23 23:48] VITALS: BP_SYST 106; BP_DIAS 64; BP_DIAS 76
[2019-11-24 03:00] VITALS: BP 116/78
--- NOTE | 2019-11-24 06:54 | NUR ---
IP: Pt is COVID negative.
[2019-11-24 07:12] VITALS: BP 119/81
[2019-11-24] MEDS: oxyCODONE/APAP 5/325 1 TAB TABLET PO PRN (09:01)
[2019-11-24] MEDS: hydroCHLOROthiazide 12.5 MG CAPSULE PO SCH (09:02)
[2019-11-24] MEDS: LISINOPRIL 10 MG TABLET PO SCH (09:02)
--- NOTE | 2019-11-24 11:28 | NUR ---
SS following up with discharge planning. SS reviewed pt chart and discussed with pt RN. Pt is currently on room air and COVID19 negative. PT recommended home. Per RN, pt having abdominal pain and nausea today. CT ordered. Possible discharge to home if CT is normal. SS will continue to follow for discharge planning.
[2019-11-24 11:32] VITALS: BP 121/79
[2019-11-24] MEDS ORDERED: IOHEXOL 240 MG/ML 50ML VIAL. PO ONE (13:00)
[2019-11-24] MEDS ORDERED: IOHEXOL 300 MG/ML 100ML VIAL. IV ONE (13:00)
[2019-11-24] MEDS ORDERED: ONDANSETRON PF 4 MG/2 ML VIAL. IVP PRN (14:00)
--- NOTE | 2019-11-24 14:33 | RAD ---
CT ABD PELV W/ORAL IV CONTRAST Indication: Abdominal pain, intractable nausea. Fever. Exposure: One or more of the following individualized dose reduction techniques were utilized for this examination: 1. Automated exposure control 2. Adjustment of the mA and/or kV according to patient size 3. Use of iterative reconstruction technique. Technique: Intravenous contrast was given. Oral contrast was given. Comparison: None FINDINGS: Mild atelectasis in the lung bases. Numerous small calcifications within the liver and spleen, compatible with granulomatous etiology. Pancreas appears unremarkable. No evidence of adrenal mass. The kidneys demonstrate symmetric enhancement without hydronephrosis or focal mass. No evidence of calcified gallstone. Aorta is mildly calcified. No evidence of aneurysm. No evidence of pathologic lymph node enlargement. The stomach appears within normal limits. No evidence of significant small bowel distention. No evidence of acute colitis. The appendix appears normal. No evidence of pneumoperitoneum. No significant ascites. The pelvis is obscured by some metal artifact from left hip replacement. There may be mild urinary bladder wall thickening, although this may be accentuated by incomplete distention. The prostate gland is mildly enlarged. Degenerative spondylosis of the visualized thoracolumbar spine neural foraminal narrowing of the lumbar spine bilaterally.. No evidence of acute fracture or aggressive bone destruction. 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 Left hip replacement is noted. IMPRESSION: 1. Possible mild urinary bladder wall thickening, correlate for symptoms or signs of cystitis. 2. Degenerative spondylosis, with lumbar neural foraminal stenosis. Electronically signed by: Trey Morrissey MD (11/24/2019 2:30 PM) [id number]
[2019-11-24 15:25] VITALS: BP 122/91
[2019-11-24] MEDS ORDERED: PANT40TA77 PO (15:40)
[2019-11-24] MEDS ORDERED: ONDA4TAB7 PO (15:40)
--- NOTE | 2019-11-24 16:50 | NUR ---
Discharge instructions given to patient regarding medications and follow up appointment. Education given over abd pain, weakness, and safety. Patient verbalizes understanding.
--- NOTE | 2019-11-25 19:55 | PDOC3 ---
Discharge Summary Visit Information Date of Admission: November 22, 2019 Date of Discharge: November 24, 2019 Admitting Diagnosis Comment: fever, sepsis cough, leg weakness, abd pain, presume COVID -19 infection admit Final Diagnosis Problems Medical Problems: (1) Abdominal pain etiology undetermined Status: Acute (2) Dyspnea improved Status: Acute Brief Hospital Course Allergies Allergies Coded Allergies Type Severity Reaction Last Updated Verified No Known Drug Allergies 11/22/19 No Vital Signs Vital Signs Date Time Temp Pulse Resp B/P (MAP) Pulse Ox O2 Delivery O2 Flow Rate FiO2 11/24/19 15:25 97.6 65 18 122/91 (101) 96 Room Air 97.6 Brief Hospital Course Mr. Gonzalez is a 64 old male with the above-mentioned admitting diagnosis with suspected COVID infection that was ruled out. The patient continued to not feel well throughout his hospital stay nevertheless all his testing was negative and his vital signs were normal. The patient underwent a repeat CAT scan of the abdomen which had been done according to the patient 2 weeks ago with no abnormal findings he continued to have persistent nausea and I have provided him with a PPI trial for 14 days and Zofran for relief of his symptoms. Likely note the patient did not have difficulty with infection and he was reassured and educated on the signs and symptoms of concern and when to seek medical attention. I have prompted him to follow-up with his primary care physician within 1 week of his concerns were addressed prior to his dismissal. For physical examination please refer to today's note Discharge Information Condition at Discharge: Improved Follow Up: Weeks Disposition/Orders: D/C to Home Scheduled Atorvastatin Calcium (Atorvastatin Calcium) 20 Mg Tablet, 1 TAB PO HS for Hyperlipidemia for 30 Days, #30 Ref 5 (Reported) Entered as Reported by: ASTRID HERNANDEZ RN on 11/23/19937 Last Taken: Unknown Dose on 11/21/19 Last Action: Continued on 11/23/191717 by ASTRID HERNANDEZ RN Lisinopril/Hydrochlorothiazide (Lisinopril-Hctz 10-12.5 Mg Tab) 1 Each Tablet, 1 TAB PO DAILY for HTN, #30 Ref 5 (Reported) Entered as Reported by: ASTRID HERNANDEZ RN on 11/23/19937 Last Taken: Unknown Dose on 11/22/19 Last Action: Converted on 11/23/191717 by ASTRID HERNANDEZ, RN Ondansetron Hcl (Zofran) 4 Mg Tablet, 1 TAB PO Q6HRS for nausea, #20 Prescribed by: LANDRY PEREZ MD on 11/24/191539 Pantoprazole Sodium (Pantoprazole Sodium ) 40 Mg Tablet.dr, 40 MG PO DAILYAC for GERD for 14 Days, #14 Prescribed by: LANDRY PEREZ MD on 11/24/19 146 LANDRY PEREZ MD November 25, 2019 19:55
== END 2019-11-24 17:10 | disposition home or self-care (01) | DRG 392 ==
LOC: ER 15:36 → ED HOLD 17:30 → 6 SOUTH 20:35
PROVIDERS: ADMIT Internal Medicine; ATTEND Internal Medicine
DX: R10.9 Unspecified abdominal pain (principal); I10 Essential (primary) hypertension; E78.00 Pure hypercholesterolemia, unspecified; Z96.642 Presence of left artificial hip joint; Z79.899 Other long term (current) drug therapy; Z20.828 Contact with and (suspected) exposure to other viral communicable diseases
CPT/HCPCS: 36415; 71045; 71275; 74177; 80053; 81001; 82728; 83605; 83880; 84484; 85025; 85379; 86140; 96360; 99285; J1650; J2270; J2405; J7030; Q9966; Q9967; G0378; U0003-CS